=== PATIENT | male | born 1960 | race Caucasian/White ===

== ENCOUNTER 2017-02-19 00:41 | Emergency (ER) | payer OTHER ==
[~2017-02-19] VITALS: Ht 172.7 cm; Wt 71.2 kg
[2017-02-19 01:11] LABS: LYMPH # 1.4 K/mm3 (0.7-4.5); LYMPH % 15.1 % (10-50)
--- NOTE | 2017-02-19 01:14 | Emergency Room Report ---
History of Present Illness Time Seen by [id number] Presenting Problem in Triage Pt arrived:Walked Presenting Problem:KIDNEY PAIN AND PRESSURE, STATES HE HAD A 11MM KIDNEY STONE, SAW DR. CAIN ON FRIDAY AT [facility], TOOK STENT OUT YESTERDAY AND HAS BEEN PASSING PIECES OF STONE, TODAY HASNT PASSED MUCH OF ANYTHING, HAVING A LOT OF PAIN. 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 N Clinical Suspician of Infection? N Mental Status: 1 - Regular (Normal Baseline) Sepsis Risk:Possible Sepsis Risk Have you (or family members/close friends) recently traveled outside the [place]? N If Yes, where/when: Have you had exposure to infectious disease within the past month? N TB? Other? Specify: Source patient, RN notes reviewed, family, old records Exam Limitations no limitations Comment recent urology procedure for stone and removed stent tonight and has sig pain rt sided with nausea but no gross hematuria and no fever - took at home meds but pain continued Cardiac Chest Pain Chest pain indicative of cardiac No Timing/Duration this evening Severity moderate ALLERGIES Coded Allergies: acetaminophen (From LORTAB) (I-ITCHING 01/01/17) hydrocodone (From LORTAB) (I-ITCHING 01/01/17) Home Medications Active Scripts HYDROCODONE/ACETAMINOPHEN ([place] 5-325 Tablet) 1-2 TAB PO Q4HP PRN PAIN PER PATIENT #33 TAB Prov: 08/07/14 Reported Medications Pravastatin Sodium (Pravastatin 20MG) 20 MG PO DAILY Aspirin (Adult Low Dose Aspirin EC) 81 MG PO Cholecalciferol (Vitamin D3) (Vitamin D) 400 UNIT PO Tramadol Hcl (Ultram 50MG) 50 MG PO Trazodone Hcl 25 MG PO QHSP PRN SLEEP #30 History Medical History General CAD? No Angina: No [place]: No Hypertension? Yes Hyperlipidemia? Yes CHF? No COPD? No Asthma? No Anemia? No Hernia? No Thyroid Problems? No Hypothyroidism? No CVA? No Seizures? No Diabetes? No End Stage Renal Disease? No UTI? No GB Disease: No Nephritic Syndrome? No Asplenia? No Hepatitis? No Sickle Cell Disease? No Arthritis? No Cataracts? No Glaucoma? No MRSA? No TB? No Cancer? No Immunization Hx DT/Tetanus 1-4 Years Ago Flu Refused Pneumonia Never Had Surgical Hx Previous Surgery?Y KIDNEY STONES Family History Family Hx Diabetes Yes CAD No Hypertension Yes Hyperlipidemia Yes Cancer Yes TB No Social History Smoking Hx Smoker: Never Smoker Tobacco: No Type Cigarettes Packs/day N/A Alcohol Alcohol: No Drugs none Review of Systems All Other Systems Reviewed and Negative Constitutional denies fever Eyes denies drainage ENT denies: ear discharge, epistaxis. Respiratory denies cough, denies shortness of breath Cardiovascular denies chest pain, denies palpitations, denies syncope Gastrointestinal denies abdominal pain, denies diarrhea, denies vomiting Genitourinary see HPI. denies: dysuria, frequency, hesitancy, hematuria, scrotal/testicular pain. Musculoskeletal denies back pain, denies joint pain, denies joint swelling, denies neck pain Skin denies rash Psychiatric/Neurological denies headache, denies seizure Physical Exam Vital Signs Vital Signs Date Time Temp Pulse Resp B/P Pulse O2 O2 Flow FiO2 Ox Delivery Rate 02/19 0114 14 02/19 0053 98.4 90 20 133/87 97 - WBC >12,000 or <4,000 or 10% bands? 2 or more SIRS Criteria Met? B/P:133/87 MAP:102 Creatinine >2.0? UA output<0.5ml/kg/hr for 2 hrs? Platelet count >100,000? Lactate >2.0mmol/1? INR >1.2 or PTT > than 60 sec? Evidence of Organ Dysfunction? Provider documented clinical suspician of infection? N Sepsis Criteria Count: 2 Sepsis Risk: Possible Sepsis Risk General Appearance no apparent distress Eye Exam - bilateral eye PERRL, bilateral eye EOMI Ear, Nose, Throat normal ENT inspection Neck supple Respiratory Status No: respiratory distress. 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 No Results/Orders Laboratory Tests 02/19/17 0120: Urine Color YELLOW, Urine Appearance CLEAR, Urine pH 6.5, Ur Specific [place] <= 1.005, Urine Protein NEGATIVE, Urine Ketones NEGATIVE, Urine Blood 2+ H, Urine Nitrate NEGATIVE, Urine Bilirubin NEGATIVE, Urine Urobilinogen 0.2, Ur Leukocyte Esterase TRACE H, Urine RBC 3-5, Urine WBC 3-5, Urine Bacteria OCC, Urine Glucose NEGATIVE 02/19/17 0111: Sodium 134 L, Potassium 4.2, Chloride 96 L, Carbon Dioxide 31, BUN 18, Creatinine 1.4 H, Estimated Creat Clear 59, Estimated GFR (MDRD) 52, Glucose 111 H, Calcium 9.4, Total Bilirubin 0.6, AST 13 L, ALT 25, Alkaline Phosphatase 75, Total Protein 8.0, Albumin 4.0, Globulin 4.0 H, Albumin/ Globulin Ratio 1.0 L, WBC 9.0, RBC 4.85, Hgb 14.8, Hct 42.5, MCV 87.7, RDW 13.0 , Plt Count 222, MPV 6.5 L, Gran % 68.6, Gran # 6.2, Lymphocytes % 15.1, Monocytes % 9.2, Eosinophils % 6.6, Basophils % 0.5, Lymphocytes # 1.4, Monocytes # 0.8, Eosinophils # 0.6 H, Basophils # 0.1, PUBS MCHC 34.2, MCH 30.0 Current Medication Orders Sig/Damir Start time Last Medication Dose Route Stop Time Status Admin Sodium Chloride 1,000 ML .STK-MED ONE 02/19 109 DC IV Ketorolac 0 .STK-MED ONE 02/20 108 DC Tromethamine .ROUTE Ketorolac 30 MG ONCE ONE 02/19 100 DC 02/19 Tromethamine IV 02/19 101 0114 Sodium Chloride 10 ML PRN PRN 02/19 100 AC IV 02/20 005 Sodium Chloride 1,000 ML .Q1H1M 02/19 100 DC 02/19 IV 02/19 0200 0114 Sodium Chloride 10 ML PRN PRN 02/19 100 AC IV 02/20 005 Orders Procedure Date/time Status DIET-NOTHING BY MOUTH 02/[address] ABD & PELVIS W/O CONTRAST 02/[address] SCAN REQ 02/19 51 Complete IV SALINE LOCK 02/19 51 Active URINALYSIS/COMPLETE 02/19 51 Complete COMPLETE METABOLIC PANEL 02/19 51 Complete CBC WITH AUTO DIFF 02/19 51 Complete XRAY/CT/US XRAY/CT/US CT abdomen, pelvis CT interpretation by discussed w/radiologist Time results known: 236 CT Results abnormal (see report) Departure Departure Time of Disposition 229 Disposition DC Home or Self Care(routine) Clinical Impression Primary Impression: Renal colic on right side Condition STABLE Referrals Josh Cain MD Patient Instructions DI for Kidney Stones Additional Instructions keep appt with urology this week Discharge Counseling Counseled pt/family regarding diagnosis, test results, medications/RX, follow up needs Prescriptions Current Visit Scripts OXYCODONE HCL/ACETAMINOPHEN (Percocet 5-325 MG Tablet) 1 TAB PO Q6HP PRN pain #7 TAB ED Critical Care Critical Care No at 0237
--- NOTE | 2017-02-19 01:14 | Emergency Room Report ---
History of Present Illness Time Seen by [id number] Presenting Problem in Triage Pt arrived:Walked Presenting Problem:KIDNEY PAIN AND PRESSURE, STATES HE HAD A 11MM KIDNEY STONE, SAW DR. CAIN ON FRIDAY AT [facility], TOOK STENT OUT YESTERDAY AND HAS BEEN PASSING PIECES OF STONE, TODAY HASNT PASSED MUCH OF ANYTHING, HAVING A LOT OF PAIN. 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 N Clinical Suspician of Infection? N Mental Status: 1 - Regular (Normal Baseline) Sepsis Risk:Possible Sepsis Risk Have you (or family members/close friends) recently traveled outside the [place]? N If Yes, where/when: Have you had exposure to infectious disease within the past month? N TB? Other? Specify: Source patient, RN notes reviewed, family, old records Exam Limitations no limitations Comment recent urology procedure for stone and removed stent tonight and has sig pain rt sided with nausea but no gross hematuria and no fever - took at home meds but pain continued Cardiac Chest Pain Chest pain indicative of cardiac No Timing/Duration this evening Severity moderate ALLERGIES Coded Allergies: acetaminophen (From LORTAB) (I-ITCHING 01/01/17) hydrocodone (From LORTAB) (I-ITCHING 01/01/17) Home Medications Active Scripts HYDROCODONE/ACETAMINOPHEN ([place] 5-325 Tablet) 1-2 TAB PO Q4HP PRN PAIN PER PATIENT #33 TAB Prov: 08/07/14 Reported Medications Pravastatin Sodium (Pravastatin 20MG) 20 MG PO DAILY Aspirin (Adult Low Dose Aspirin EC) 81 MG PO Cholecalciferol (Vitamin D3) (Vitamin D) 400 UNIT PO Tramadol Hcl (Ultram 50MG) 50 MG PO Trazodone Hcl 25 MG PO QHSP PRN SLEEP #30 History Medical History General CAD? No Angina: No GA: No Hypertension? Yes Hyperlipidemia? Yes CHF? No COPD? No Asthma? No Anemia? No Hernia? No Thyroid Problems? No Hypothyroidism? No CVA? No Seizures? No Diabetes? No End Stage Renal Disease? No UTI? No GB Disease: No Nephritic Syndrome? No Asplenia? No Hepatitis? No Sickle Cell Disease? No Arthritis? No Cataracts? No Glaucoma? No MRSA? No TB? No Cancer? No Immunization Hx DT/Tetanus 1-4 Years Ago Flu Refused Pneumonia Never Had Surgical Hx Previous Surgery?Y KIDNEY STONES Family History Family Hx Diabetes Yes CAD No Hypertension Yes Hyperlipidemia Yes Cancer Yes TB No Social History Smoking Hx Smoker: Never Smoker Tobacco: No Type Cigarettes Packs/day N/A Alcohol Alcohol: No Drugs none Review of Systems All Other Systems Reviewed and Negative Constitutional denies fever Eyes denies drainage ENT denies: ear discharge, epistaxis. Respiratory denies cough, denies shortness of breath Cardiovascular denies chest pain, denies palpitations, denies syncope Gastrointestinal denies abdominal pain, denies diarrhea, denies vomiting Genitourinary see HPI. denies: dysuria, frequency, hesitancy, hematuria, scrotal/testicular pain. Musculoskeletal denies back pain, denies joint pain, denies joint swelling, denies neck pain Skin denies rash Psychiatric/Neurological denies headache, denies seizure Physical Exam Vital Signs Vital Signs Date Time Temp Pulse Resp B/P Pulse O2 O2 Flow FiO2 Ox Delivery Rate 02/19 0114 14 02/19 0053 98.4 90 20 133/87 97 - WBC >12,000 or <4,000 or 10% bands? 2 or more SIRS Criteria Met? B/P:133/87 MAP:102 Creatinine >2.0? UA output<0.5ml/kg/hr for 2 hrs? Platelet count >100,000? Lactate >2.0mmol/1? INR >1.2 or PTT > than 60 sec? Evidence of Organ Dysfunction? Provider documented clinical suspician of infection? N Sepsis Criteria Count: 2 Sepsis Risk: Possible Sepsis Risk General Appearance no apparent distress Eye Exam - bilateral eye PERRL, bilateral eye EOMI Ear, Nose, Throat normal ENT inspection Neck supple Respiratory Status No: respiratory distress. 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 No Results/Orders Laboratory Tests 02/19/17 0120: Urine Color YELLOW, Urine Appearance CLEAR, Urine pH 6.5, Ur Specific [place] <= 1.005, Urine Protein NEGATIVE, Urine Ketones NEGATIVE, Urine Blood 2+ H, Urine Nitrate NEGATIVE, Urine Bilirubin NEGATIVE, Urine Urobilinogen 0.2, Ur Leukocyte Esterase TRACE H, Urine RBC 3-5, Urine WBC 3-5, Urine Bacteria OCC, Urine Glucose NEGATIVE 02/19/17 0111: Sodium 134 L, Potassium 4.2, Chloride 96 L, Carbon Dioxide 31, BUN 18, Creatinine 1.4 H, Estimated Creat Clear 59, Estimated GFR (MDRD) 52, Glucose 111 H, Calcium 9.4, Total Bilirubin 0.6, AST 13 L, ALT 25, Alkaline Phosphatase 75, Total Protein 8.0, Albumin 4.0, Globulin 4.0 H, Albumin/ Globulin Ratio 1.0 L, WBC 9.0, RBC 4.85, Hgb 14.8, Hct 42.5, MCV 87.7, RDW 13.0 , Plt Count 222, MPV 6.5 L, Gran % 68.6, Gran # 6.2, Lymphocytes % 15.1, Monocytes % 9.2, Eosinophils % 6.6, Basophils % 0.5, Lymphocytes # 1.4, Monocytes # 0.8, Eosinophils # 0.6 H, Basophils # 0.1, PUBS MCHC 34.2, MCH 30.0 Current Medication Orders Sig/Damir Start time Last Medication Dose Route Stop Time Status Admin Sodium Chloride 1,000 ML .STK-MED ONE 02/19 109 DC IV Ketorolac 0 .STK-MED ONE 02/20 108 DC Tromethamine .ROUTE Ketorolac 30 MG ONCE ONE 02/19 100 DC 02/19 Tromethamine IV 02/19 101 0114 Sodium Chloride 10 ML PRN PRN 02/19 100 AC IV 02/20 005 Sodium Chloride 1,000 ML .Q1H1M 02/19 100 DC 02/19 IV 02/19 0200 0114 Sodium Chloride 10 ML PRN PRN 02/19 100 AC IV 02/20 005 Orders Procedure Date/time Status DIET-NOTHING BY MOUTH 02/[address] ABD & PELVIS W/O CONTRAST 02/[address] SCAN REQ 02/19 51 Complete IV SALINE LOCK 02/19 51 Active URINALYSIS/COMPLETE 02/19 51 Complete COMPLETE METABOLIC PANEL 02/19 51 Complete CBC WITH AUTO DIFF 02/19 51 Complete XRAY/CT/US XRAY/CT/US CT abdomen, pelvis CT interpretation by discussed w/radiologist Time results known: 236 CT Results abnormal (see report) Departure Departure Time of Disposition 229 Disposition DC Home or Self Care(routine) Clinical Impression Primary Impression: Renal colic on right side Condition STABLE Referrals Josh Cain MD Patient Instructions DI for Kidney Stones Additional Instructions keep appt with urology this week Discharge Counseling Counseled pt/family regarding diagnosis, test results, medications/RX, follow up needs Prescriptions Current Visit Scripts OXYCODONE HCL/ACETAMINOPHEN (Percocet 5-325 MG Tablet) 1 TAB PO Q6HP PRN pain #7 TAB ED Critical Care Critical Care No at 0237
[2017-02-19 01:15] LABS: HEMOGLOBIN 14.8 g/dL (14.1-18.0)
[2017-02-19 01:24] LABS: URINE BILIRUBIN - DIPSTICK NEGATIVE (NEG); URINE BLOOD 2+ (NEG)
[2017-02-19 03:09] VITALS: BP 141/84
--- NOTE | 2017-02-19 05:39 | RADIOLOGY REPORT PS360 ---
CT ABD PELVIS W/O CONTRAST CLINICAL INDICATION: Right-sided flank pain, recent lithotripsy with stent removal FLANK PAIN ORDERING PHYSICIAN: Jeannine Aquino MD PATIENT AGE: 57 years COMPARISON: 08/06/2014 TECHNIQUE: Axial images obtained with sagittal and coronal reformats. PROCEDURE: Oral Contrast: None IV Contrast: None . FINDINGS: Lung bases are clear. The liver, gallbladder, spleen, adrenal glands, and pancreas have an unremarkable unenhanced CT appearance. There is moderate right hydronephrosis and hydroureter with the right nephrolithiasis. Largest stone is in the lower pole 8 mm. 17 mm cyst is present in the left kidney. 13 mm cyst lower pole right kidney. There is mild stranding of the right perinephric renal fat and thickening of the pararenal fascia. There is mild to moderate right hydroureter secondary to a right ureterovesical junction stone which measures 10 m longitudinal and 5 mm transverse. A smaller stone is suspected just distal to the larger stone measuring approximately 3 mm. No stones evident within the urinary bladder. Prior appendectomy. Colonic diverticulosis without diverticulitis. No intestinal obstruction or free air. Small umbilical hernia containing fat. Degenerative changes lower thoracic spine. IMPRESSION: 1. Moderate right hydronephrosis and hydroureter secondary to a 10 x 5 mm right ureterovesical junction stone with an additional 3 mm stone also at the UVJ. There is stranding of the right perinephric and periureteral fat. 2. Right nephrolithiasis.
== END 2017-02-19 03:19 | disposition home or self-care (01) ==
LOC: ER 00:41
PROVIDERS: Emergency Medicine
DX: N23 Unspecified renal colic (principal); Z87.442 Personal history of urinary calculi; E78.5 Hyperlipidemia, unspecified; I10 Essential (primary) hypertension; Z79.82 Long term (current) use of aspirin; Z79.891 Long term (current) use of opiate analgesic

== ENCOUNTER → 2017-02-21 | Outpatient (CLI) | payer OTHER ==
[~2017-02-21] MED LIST: ADULT LOW DOSE81 MG PO; LISINOPRIL10 MG PO; NORCO 325 MG-51 TAB PO; PERCOCET1 TAB PO; PRAVASTATIN 20M20 MG PO; TRAZODONE HCL50 MG PO; ULTRAM50 MG PO; VITAMIN D400 UNI1 PO
--- NOTE | 2017-02-21 11:07 | RADIOLOGY REPORT PS360 ---
KUB (SINGLE VIEW) HISTORY: Follow-up kidney stone KIDNEY STONES ORDERING PHYSICIAN: Josh Benjamin MD PATIENT AGE: 57 years COMPARISON: 02/20/2017 FINDINGS: Previously noted right distal ureteral stone is no longer appear. Pelvic phleboliths are present on the left. Unremarkable bowel gas pattern with no acute bony anomalies. IMPRESSION: Right ureterovesical junction stone no longer apparent
== END ==
LOC: RAD 09:59
DX: N20.0 Calculus of kidney (principal)